=== PATIENT | male | born 1965 ===

== ENCOUNTER 2023-02-11 09:15 | Outpatient (REF) | payer OTHER, SELFPAY ==
--- NOTE | 2023-02-11 16:22 | MHC.AU.HAS ---
Hearing Aid Evaluation Date of Visit: 02/11/23 Historical Information: Description of Hearing: Borderline normal hearing 250-500 and at 8000 Hz in the right ear, mild sensorineural hearing loss 4234-7805 Hz. In the left ear, borderline normal hearing at 250 Hz, sloping to a mild sensorineural hearing loss at 1000 Hz, rising back to borderline normal at 3000 Hz. Summary: Leon visited the office today for a hearing aid evaluation. He is transferring care to us from [facility], where he had his hearing tested on 01/20/2023. Leon reported that he feels that he is able to hear people alright, but he has trouble distinguishing words (e.g. hearing 'nine' instead of 'five.') We talked at length about the importance of wearing hearing aids regularly, why getting hearing aids sooner rather than later can provide more benefit in the future, and the general time line of getting the aids. Given the configuration of Leon's hearing loss and the listening difficulties that he has been experiencing, we decided on a pair of Phonak Audeo L70-R hearing aids with 2M receivers in [facility]. This will also give him the option of connecting the aids to his Android phone if he would like to. Leon agreed with this plan. He will be contacted to set up a fitting appointment once the aids arrive. Hearing Aid Prescription: Based on the individual?s shared listening needs, communication environments, dexterity, desire for connectivity, and personal preferences, the following prescription for amplification has been made: Right ear: Aviation Technician: Phonak Model: Audeo L70-R Battery Size: Rechargeable Color: [place] Stitchdowns Toe Former: 2M Type of Dome: Medium Open Left ear: Left ear prescription to be same as Right Hearing Aid above: Aviation Technician: Phonak Model: Audeo L70-R Battery Size: Rechargeable Color: [place] Stitchdowns Toe Former: 2M Type of Dome: Medium Open Plan of Care: Patient wishes to purchase hearing aids as prescribed Action Taken/Action Needed: Hearing Instrument Fitting to be scheduled when materials arrive Primary Diagnosis: H90.3 Bilateral Sensorineural Hearing Loss Signature: Student/Clinical Fellow: Yes: Nimisha Hopkins, HIS Forensic Toxicologist I have reviewed/agreed with student/fellow documentation: Yes Provider: Soila Stephens, [facility]
== END 2023-02-11 09:16 | disposition home or self-care (01) ==
LOC: HO.HAP 09:15
PROVIDERS: PCP Internal Medicine; Visit Provider Otolaryngology
DX: H90.3 Sensorineural hearing loss, bilateral (principal)
CPT/HCPCS: 92591

== ENCOUNTER 2023-03-11 10:58 | Outpatient (REF) | payer OTHER, SELFPAY | END 2023-03-11 10:59 | disposition home or self-care (01) | LOC: HO.HAP 10:58 | PROVIDERS: Visit Provider Internal Medicine | DX: Z46.1 Encounter for fitting and adjustment of hearing aid (principal); H90.3 Sensorineural hearing loss, bilateral | CPT/HCPCS: 92595; V5011; V5020; V5160; V5261 ==